=== PATIENT | male | born 1950 | race Caucasian/White ===

== ENCOUNTER → 2017-03-21 | Outpatient (REF) | payer MEDICARE ==
[2017-03-21 15:37] LABS: BASO # 0.1 K/mm3 (0.0-0.2); EOS # 0.3 K/mm3 (0.0-0.50); EOS % 3.7 % (0.0-3.0); LARGE UNSTAINED CELL # 0.2 K/mm3 (0.0-0.4); LARGE UNSTAINED CELL % 1.9 % (0.0-4.0); LYMPH # 2.5 K/mm3 (1.5-4.5); LYMPH % 27.2 % (24.0-44.0); MEAN CORPUSCULAR HEMOGLOBIN 31.3 pg (27.0-33.0); MEAN CORPUSCULAR HGB CONC 35.2 g/dl (32.0-36.5); MEAN CORPUSCULAR VOLUME 88.8 fl (80.0-96.0); MONO # 0.5 K/mm3 (0.0-0.8); MONO % 5.6 % (0.0-5.0); NEUTROPHILS # 5.2 K/mm3 (1.8-7.7); NEUTROPHILS % 60.7 % (36.0-66.0); PLATELET COUNT, AUTOMATED 260 k/mm3 (150-450); RED CELL DISTRIBUTION WIDTH 12.9 % (11.5-14.5); WHITE BLOOD COUNT 8.6 K/mm3 (4.0-10.0)
[2017-03-21 15:50] LABS: ALBUMIN 3.8 GM/DL (3.2-5.2); ALBUMIN/GLOBULIN RATIO 1.12 (1.00-1.93); ALKALINE PHOSPHATASE 92 U/L (45-117); ALT/SGPT 36 U/L (12-78); ANION GAP 8 MEQ/L (8-16); AST/SGOT 22 U/L (15-37); BILIRUBIN,TOTAL 1.2 MG/DL (0.2-1.0); BLOOD UREA NITROGEN 21 MG/DL (7-18); CALCIUM LEVEL 8.8 MG/DL (8.8-10.2); CARBON DIOXIDE LEVEL 31 MEQ/L (21-32); CHLORIDE LEVEL 101 MEQ/L (98-107); CHOLESTEROL LEVEL 187 MG/DL (<200); CREATININE FOR GFR 0.96 MG/DL (0.70-1.30); GLOMERULAR FILTRATION RATE > 60.0 (>49); GLUCOSE, FASTING 197 MG/DL (80-110); POTASSIUM SERUM 4.7 MEQ/L (3.5-5.1); SODIUM LEVEL 140 MEQ/L (136-145); TOTAL PROTEIN 7.2 GM/DL (6.4-8.2); TRIGLYCERIDES LEVEL 213 MG/DL (<150)
== END ==
LOC: M SFHCSACK 13:31
PROVIDERS: ATTEND Physician Assistant
DX: E11.628 Type 2 diabetes mellitus with other skin complications (principal); F41.8 Other specified anxiety disorders; E78.5 Hyperlipidemia, unspecified; E11.69 Type 2 diabetes mellitus with other specified complication; R53.83 Other fatigue; Z79.82 Long term (current) use of aspirin; E55.9 Vitamin D deficiency, unspecified

== ENCOUNTER → 2017-04-08 | Outpatient (REF) | payer MEDICARE | LOC: M LABDRWLA 15:26 | PROVIDERS: ATTEND Urology | DX: Z12.5 Encounter for screening for malignant neoplasm of prostate (principal) | CPT/HCPCS: 36415; G0103 ==

== ENCOUNTER → 2017-07-25 | Outpatient (REF) | payer MEDICARE ==
[2017-07-25 16:43] LABS: BASO # 0.1 K/mm3 (0.0-0.2); BASO % 0.7 % (0.0-1.0); EOS # 0.1 K/mm3 (0.0-0.50); LARGE UNSTAINED CELL # 0.2 K/mm3 (0.0-0.4); LARGE UNSTAINED CELL % 1.3 % (0.0-4.0); LYMPH % 20.2 % (24.0-44.0); MEAN CORPUSCULAR HEMOGLOBIN 30.1 pg (27.0-33.0); MEAN CORPUSCULAR HGB CONC 33.8 g/dl (32.0-36.5); MEAN CORPUSCULAR VOLUME 88.8 fl (80.0-96.0); MONO # 0.9 K/mm3 (0.0-0.8); MONO % 6.1 % (0.0-5.0); NEUTROPHILS # 9.9 K/mm3 (1.8-7.7); NEUTROPHILS % 70.8 % (36.0-66.0); PLATELET COUNT, AUTOMATED 286 k/mm3 (150-450); RED CELL DISTRIBUTION WIDTH 13.1 % (11.5-14.5)
[2017-07-25 16:50] LABS: ALBUMIN 3.8 GM/DL (3.2-5.2); ALBUMIN/GLOBULIN RATIO 1.09 (1.00-1.93); ALKALINE PHOSPHATASE 89 U/L (45-117); ALT/SGPT 32 U/L (12-78); ANION GAP 7 MEQ/L (8-16); AST/SGOT 10 U/L (15-37); BLOOD UREA NITROGEN 23 MG/DL (7-18); CALCIUM LEVEL 9.1 MG/DL (8.8-10.2); CARBON DIOXIDE LEVEL 31 MEQ/L (21-32); CHLORIDE LEVEL 102 MEQ/L (98-107); CHOLESTEROL LEVEL 119 MG/DL (<200); CREATININE FOR GFR 0.91 MG/DL (0.70-1.30); GLOMERULAR FILTRATION RATE > 60.0 (>49); GLUCOSE, FASTING 127 MG/DL (80-110); POTASSIUM SERUM 4.4 MEQ/L (3.5-5.1); SODIUM LEVEL 140 MEQ/L (136-145); TOTAL PROTEIN 7.3 GM/DL (6.4-8.2); TRIGLYCERIDES LEVEL 128 MG/DL (<150)
== END ==
LOC: M SFHCSACK 10:48
PROVIDERS: ATTEND Physician Assistant
DX: E78.5 Hyperlipidemia, unspecified (principal); E11.628 Type 2 diabetes mellitus with other skin complications; E55.9 Vitamin D deficiency, unspecified

== ENCOUNTER → 2017-07-25 | Outpatient (REF) | payer MEDICARE ==
[2017-07-25 16:48] LABS: FOLATE 10.5 NG/ML
[2017-07-25 16:52] LABS: MEAN CORPUSCULAR HEMOGLOBIN 31.1 pg (27.0-33.0); MEAN CORPUSCULAR HGB CONC 34.9 g/dl (32.0-36.5); MEAN CORPUSCULAR VOLUME 89.1 fl (80.0-96.0); WHITE BLOOD COUNT 13.3 K/mm3 (4.0-10.0)
[2017-07-25 16:53] LABS: FREE T4 0.8 NG/DL (0.76-1.46); PERCENT SATURATION 27.7 % (19.7-50.0)
== END ==
LOC: M LAB REF 14:15
PROVIDERS: ATTEND Registered Nurse
DX: E78.5 Hyperlipidemia, unspecified (principal); Z79.899 Other long term (current) drug therapy; E11.628 Type 2 diabetes mellitus with other skin complications; E55.9 Vitamin D deficiency, unspecified

== ENCOUNTER → 2017-08-03 | Outpatient (REF) | payer MEDICARE | LOC: M LAB REF 15:42 | PROVIDERS: ATTEND Registered Nurse | DX: E66.01 Morbid (severe) obesity due to excess calories (principal) | CPT/HCPCS: 36415; 84425; G0463 ==

== ENCOUNTER → 2017-11-25 | Outpatient (REF) | payer MEDICARE ==
[2017-11-25 17:51] LABS: BASO # 0.1 10^3/uL (0.0-0.2); EOS # 0.3 10^3/uL (0.0-0.50); EOS % 4.9 % (0.0-3.0); HEMATOCRIT 38.2 % (42.0-52.0); HEMOGLOBIN 12.4 g/dl (14.0-18.0); IMMATURE GRANULOCYTE % 0.3 % (0-0); LYMPH # 1.5 10^3/uL (1.5-4.5); LYMPH % 25.7 % (24.0-44.0); MEAN CORPUSCULAR HEMOGLOBIN 28.1 pg (27.0-33.0); MEAN CORPUSCULAR HGB CONC 32.5 g/dl (32.0-36.5); MEAN CORPUSCULAR VOLUME 86.6 fl (80.0-96.0); MONO # 0.6 10^3/uL (0.0-0.8); MONO % 9.6 % (0.0-5.0); NEUTROPHILS # 3.5 10^3/uL (1.8-7.7); NEUTROPHILS % 58.5 % (36.0-66.0); PLATELET COUNT, AUTOMATED 263 10^3/uL (150-450); RED BLOOD COUNT 4.41 10^6/uL (4.30-6.10); RED CELL DISTRIBUTION WIDTH 12.1 % (11.5-14.5)
[2017-11-25 18:13] LABS: ALBUMIN 3.6 GM/DL (3.2-5.2); ALBUMIN/GLOBULIN RATIO 1.16 (1.00-1.93); ALKALINE PHOSPHATASE 79 U/L (45-117); ALT/SGPT 28 U/L (12-78); ANION GAP 5 MEQ/L (8-16); AST/SGOT 19 U/L (7-37); BILIRUBIN,TOTAL 1.3 MG/DL (0.2-1.0); BLOOD UREA NITROGEN 19 MG/DL (7-18); CALCIUM LEVEL 8.7 MG/DL (8.8-10.2); CARBON DIOXIDE LEVEL 31 MEQ/L (21-32); CHLORIDE LEVEL 105 MEQ/L (98-107); GLOMERULAR FILTRATION RATE > 60.0 (>49); GLUCOSE, FASTING 257 MG/DL (80-110); POTASSIUM SERUM 4.2 MEQ/L (3.5-5.1); SODIUM LEVEL 141 MEQ/L (136-145); TOTAL PROTEIN 6.7 GM/DL (6.4-8.2)
[2017-11-25 18:32] LABS: ESTIMATED AVERAGE GLUCOSE 189 MG/DL (60-110); HEMOGLOBIN A1c 8.2 %
[2017-11-25 18:38] LABS: TOTAL 25(OH) VITAMIN D 49.8 NG/ML (30.0-100.0)
== END ==
LOC: M SFHCSACK 10:48
DX: E78.5 Hyperlipidemia, unspecified (principal); E11.628 Type 2 diabetes mellitus with other skin complications; E55.9 Vitamin D deficiency, unspecified
CPT/HCPCS: 80053

== ENCOUNTER → 2017-12-07 | Outpatient (REF) | payer MEDICARE | LOC: M SFHCSACK 16:06 | DX: J02.9 Acute pharyngitis, unspecified (principal) ==

== ENCOUNTER → 2018-03-29 | Outpatient (CLI) | payer MEDICARE | LOC: M SLEEP HO 13:28 | DX: G47.33 Obstructive sleep apnea (adult) (pediatric) (principal) | CPT/HCPCS: G0399 ==

== ENCOUNTER → 2018-07-05 | Outpatient (REF) | payer MEDICARE ==
[2018-07-05 14:26] LABS: BASO # 0.1 10^3/uL (0.0-0.2); BASO % 1.1 % (0.0-1.0); EOS # 0.3 10^3/uL (0.0-0.50); EOS % 3.4 % (0.0-3.0); HEMATOCRIT 42.6 % (42.0-52.0); HEMOGLOBIN 14.5 g/dl (13.5-17.5); IMMATURE GRANULOCYTE % 0.4 % (0-3.0); LYMPH # 2.1 10^3/uL (1.5-4.5); LYMPH % 28.5 % (24.0-44.0); MEAN CORPUSCULAR HEMOGLOBIN 28.4 pg (27.0-33.0); MEAN CORPUSCULAR VOLUME 83.4 fl (80.0-96.0); MONO # 0.6 10^3/uL (0.0-0.8); MONO % 7.8 % (0.0-5.0); NEUTROPHILS # 4.3 10^3/uL (1.8-7.7); NEUTROPHILS % 58.8 % (36.0-66.0); PLATELET COUNT, AUTOMATED 269 10^3/uL (150-450); RED BLOOD COUNT 5.11 10^6/uL (4.30-6.10); RED CELL DISTRIBUTION WIDTH 13.1 % (11.5-14.5); WHITE BLOOD COUNT 7.3 10^3/uL (4.0-10.0)
[2018-07-05 14:55] LABS: TOTAL 25(OH) VITAMIN D 52.9 NG/ML (30.0-100.0)
[2018-07-05 15:01] LABS: ALBUMIN 3.8 GM/DL (3.2-5.2); ALBUMIN/GLOBULIN RATIO 1.09 (1.00-1.93); ALKALINE PHOSPHATASE 93 U/L (45-117); ALT/SGPT 19 U/L (12-78); ANION GAP 7 MEQ/L (8-16); AST/SGOT 15 U/L (7-37); BILIRUBIN,TOTAL 1.4 MG/DL (0.2-1.0); BLOOD UREA NITROGEN 25 MG/DL (7-18); CALCIUM LEVEL 9.2 MG/DL (8.8-10.2); CARBON DIOXIDE LEVEL 32 MEQ/L (21-32); CHLORIDE LEVEL 102 MEQ/L (98-107); CHOLESTEROL LEVEL 181 MG/DL (<200); CHOLESTEROL RISK RATIO 3.549 (<5); CREATININE FOR GFR 1.01 MG/DL (0.70-1.30); GLOMERULAR FILTRATION RATE > 60.0 (>49); GLUCOSE, FASTING 188 MG/DL (70-100); HDL CHOLESTEROL 51 MG/DL (>40); LDL CHOLESTEROL 108.4 MG/DL (<100); NON-HDL-C 130 MG/DL; SODIUM LEVEL 141 MEQ/L (136-145); TOTAL PROTEIN 7.3 GM/DL (6.4-8.2); TRIGLYCERIDES LEVEL 108 MG/DL (<150)
[2018-07-05 15:05] LABS: POTASSIUM SERUM 5.5 MEQ/L (3.5-5.1)
[2018-07-05 15:39] LABS: ESTIMATED AVERAGE GLUCOSE 192 MG/DL (60-110); HEMOGLOBIN A1c 8.3 %
== END ==
LOC: M SFHCSACK 09:21
DX: I10 Essential (primary) hypertension (principal); E11.628 Type 2 diabetes mellitus with other skin complications; F41.8 Other specified anxiety disorders; E78.5 Hyperlipidemia, unspecified; E55.9 Vitamin D deficiency, unspecified
CPT/HCPCS: 84443

== ENCOUNTER → 2018-07-12 | Outpatient (CLI) | payer MEDICARE | LOC: M SFHCSACK 09:33 | DX: E66.01 Morbid (severe) obesity due to excess calories (principal); Z53.8 Procedure and treatment not carried out for other reasons | CPT/HCPCS: 36415 ==

== ENCOUNTER → 2018-07-14 | Outpatient (REF) | payer MEDICARE ==
[2018-07-14 16:26] LABS: FERRITIN 24 NG/ML (26-388); IRON (FE) 118 UG/DL (65-175); PERCENT SATURATION 33.8 % (19.7-50.0); TOTAL IRON BINDING CAPACITY 349 UG/DL (250-450)
[2018-07-14 16:29] LABS: TOTAL 25(OH) VITAMIN D 49.1 NG/ML (30.0-100.0)
[2018-07-14 16:30] LABS: FOLATE 19.1 NG/ML (>5.4); VITAMIN B12 LEVEL 476 PG/ML (247-911)
[2018-07-20 00:06] LABS: VITAMIN B1 LEVEL WHOLE BLOOD 151.1 nmol/L (66.5-200.0)
== END ==
LOC: M SFHCSACK 15:16
DX: E11.9 Type 2 diabetes mellitus without complications (principal); F41.8 Other specified anxiety disorders; E78.5 Hyperlipidemia, unspecified; E55.9 Vitamin D deficiency, unspecified; I10 Essential (primary) hypertension; G47.33 Obstructive sleep apnea (adult) (pediatric)
CPT/HCPCS: 82746

== ENCOUNTER → 2018-10-20 | Outpatient (REF) | payer MEDICARE ==
[2018-10-20 13:45] LABS: BASO # 0.1 10^3/uL (0.0-0.2); BASO % 1.3 % (0.0-1.0); EOS # 0.2 10^3/uL (0.0-0.50); EOS % 2.4 % (0.0-3.0); HEMATOCRIT 40.4 % (42.0-52.0); IMMATURE GRANULOCYTE % 0.6 % (0-3.0); LYMPH # 2.5 10^3/uL (1.5-4.5); MEAN CORPUSCULAR HEMOGLOBIN 26.2 pg (27.0-33.0); MEAN CORPUSCULAR HGB CONC 32.2 g/dl (32.0-36.5); MEAN CORPUSCULAR VOLUME 81.3 fl (80.0-96.0); MONO # 0.5 10^3/uL (0.0-0.8); MONO % 6.9 % (0.0-5.0); NEUTROPHILS # 3.7 10^3/uL (1.8-7.7); NEUTROPHILS % 52.8 % (36.0-66.0); PLATELET COUNT, AUTOMATED 265 10^3/uL (150-450); RED BLOOD COUNT 4.97 10^6/uL (4.30-6.10); RED CELL DISTRIBUTION WIDTH 12.6 % (11.5-14.5)
[2018-10-20 14:16] LABS: ALBUMIN 3.9 GM/DL (3.2-5.2); ALBUMIN/GLOBULIN RATIO 1.15 (1.00-1.93); ALKALINE PHOSPHATASE 94 U/L (45-117); ALT/SGPT 17 U/L (12-78); ANION GAP 7 MEQ/L (8-16); AST/SGOT 12 U/L (7-37); BLOOD UREA NITROGEN 22 MG/DL (7-18); CALCIUM LEVEL 9.2 MG/DL (8.8-10.2); CARBON DIOXIDE LEVEL 31 MEQ/L (21-32); CHLORIDE LEVEL 102 MEQ/L (98-107); CHOLESTEROL LEVEL 173 MG/DL (<200); CREATININE FOR GFR 1.08 MG/DL (0.70-1.30); GLOMERULAR FILTRATION RATE > 60.0 (>49); GLUCOSE, FASTING 226 MG/DL (70-100); HDL CHOLESTEROL 49 MG/DL (>40); LDL CHOLESTEROL 106 MG/DL (<100); NON-HDL-C 124 MG/DL; POTASSIUM SERUM 4.1 MEQ/L (3.5-5.1); SODIUM LEVEL 140 MEQ/L (136-145); TOTAL PROTEIN 7.3 GM/DL (6.4-8.2); TRIGLYCERIDES LEVEL 89 MG/DL (<150)
[2018-10-20 14:19] LABS: ESTIMATED AVERAGE GLUCOSE 232 MG/DL (60-110); HEMOGLOBIN A1c 9.7 %
[2018-10-20 14:23] LABS: TOTAL 25(OH) VITAMIN D 54.2 NG/ML (30.0-100.0)
[2018-10-20 14:24] LABS: MALB URINE SIEMENS 15.3 MG/L; MAU/CREAT RATIO 8.1 MCG/MG (0.0-30.0)
== END ==
LOC: M SFHCSACK 08:17
DX: I10 Essential (primary) hypertension (principal); E78.5 Hyperlipidemia, unspecified; E11.69 Type 2 diabetes mellitus with other specified complication; E55.9 Vitamin D deficiency, unspecified
CPT/HCPCS: 80053

== ENCOUNTER → 2019-03-26 | Outpatient (REF) | payer MEDICARE ==
[2019-03-26 14:11] LABS: BASO # 0.1 10^3/uL (0.0-0.2); BASO % 1.2 % (0.0-1.0); EOS # 0.3 10^3/uL (0.0-0.50); EOS % 3.3 % (0.0-3.0); HEMATOCRIT 40.8 % (42.0-52.0); HEMOGLOBIN 13.4 g/dl (13.5-17.5); LYMPH # 2.5 10^3/uL (1.5-4.5); LYMPH % 32.3 % (24.0-44.0); MEAN CORPUSCULAR HEMOGLOBIN 27.1 pg (27.0-33.0); MEAN CORPUSCULAR HGB CONC 32.8 g/dl (32.0-36.5); MEAN CORPUSCULAR VOLUME 82.4 fl (80.0-96.0); MONO # 0.8 10^3/uL (0.0-0.8); MONO % 9.6 % (0.0-5.0); NEUTROPHILS # 4.1 10^3/uL (1.8-7.7); NEUTROPHILS % 52.7 % (36.0-66.0); PLATELET COUNT, AUTOMATED 216 10^3/uL (150-450); RED BLOOD COUNT 4.95 10^6/uL (4.30-6.10); WHITE BLOOD COUNT 7.8 10^3/uL (4.0-10.0)
[2019-03-26 14:23] LABS: ALBUMIN 3.7 GM/DL (3.2-5.2); ALT/SGPT 24 U/L (12-78); BILIRUBIN,TOTAL 1.1 MG/DL (0.2-1.0); BLOOD UREA NITROGEN 26 MG/DL (7-18); CALCIUM LEVEL 8.8 MG/DL (8.8-10.2); CARBON DIOXIDE LEVEL 32 MEQ/L (21-32); CHLORIDE LEVEL 103 MEQ/L (98-107); CHOLESTEROL LEVEL 163 MG/DL (<200); CHOLESTEROL RISK RATIO 3.395 (<5); CREATININE FOR GFR 0.98 MG/DL (0.70-1.30); GLOMERULAR FILTRATION RATE > 60.0 (>49); GLUCOSE, FASTING 228 MG/DL (70-100); HDL CHOLESTEROL 48 MG/DL (>40); LDL CHOLESTEROL 91 MG/DL (<100); NON-HDL-C 115 MG/DL; POTASSIUM SERUM 4.5 MEQ/L (3.5-5.1); SODIUM LEVEL 139 MEQ/L (136-145); TOTAL PROTEIN 6.8 GM/DL (6.4-8.2); TRIGLYCERIDES LEVEL 120 MG/DL (<150)
[2019-03-26 14:26] LABS: TOTAL 25(OH) VITAMIN D 41.8 NG/ML (30.0-100.0)
== END ==
LOC: M SFHCSACK 08:14
PROVIDERS: ATTEND Physician Assistant
DX: I10 Essential (primary) hypertension (principal); E11.69 Type 2 diabetes mellitus with other specified complication; E78.5 Hyperlipidemia, unspecified; E55.9 Vitamin D deficiency, unspecified

== ENCOUNTER → 2019-04-23 | Outpatient (REF) | payer MEDICARE | LOC: M LAB REF 14:39 | PROVIDERS: ATTEND Urology | DX: Z12.5 Encounter for screening for malignant neoplasm of prostate (principal) ==

== ENCOUNTER 2019-06-07 10:27 | Emergency (ER) | payer MEDICARE ==
[~2019-06-07] VITALS: Ht 188 cm; Wt 101.0 kg
[2019-06-07] MEDS ORDERED: TIZA4TAB4 (10:35)
[2019-06-07] MEDS ORDERED: VENL150C43 (10:35)
[2019-06-07] MEDS ORDERED: METF500T4 (10:35)
[2019-06-07] MEDS ORDERED: ECOT81TA5 PO (10:35)
[2019-06-07] MEDS ORDERED: HYDR1CAP25 (10:35)
--- NOTE | 2019-06-07 11:45 | REP ---
LUMBOSACRAL SPINE: Five views of the lumbosacral spine are performed. There is no compression fracture or malalignment with normal lumbar lordosis. There is no spondylolysis or spondylolisthesis. There is mild diffuse spurring. There is moderate disc space narrowing with subchondral sclerosis and vacuum at L4-L5 and L5-S1 with sclerosis and spurring at the posterior facet joints at those levels. The posterior elements are intact. There is narrowing and sclerosis at the sacroiliac joints. IMPRESSION: Degenerative changes without fracture or dislocation. Electronically Signed by Fredis Keller MD 06/07/2019 12:46 P
--- NOTE | 2019-06-07 11:46 | REP ---
LEFT KNEE SERIES: Five views of the left knee are performed. No fracture or dislocation is seen. There is a metallic knee prosthesis. No definite abnormal lucencies are seen adjacent to the femoral or tibial components of the prosthesis. There is mild superior patellar spurring. Vascular calcifications are seen posteriorly. IMPRESSION: No acute fracture or dislocation. Electronically Signed by Fredis Keller MD 06/07/2019 12:46 P
[2019-06-07] MEDS ORDERED: KETOROLAC 60 MG/2 ML VIAL (J1885) IM ONE (12:00)
[2019-06-07] MEDS ORDERED: VOLT1GEL15 TOP (12:31)
[2019-06-07 12:37] VITALS: BP 141/85
== END 2019-06-07 12:41 | disposition home or self-care (01) ==
LOC: M ED 10:27
DX: M54.32 Sciatica, left side (principal); G89.29 Other chronic pain; M79.662 Pain in left lower leg; E11.9 Type 2 diabetes mellitus without complications; Z98.84 Bariatric surgery status; Z79.82 Long term (current) use of aspirin; Z79.84 Long term (current) use of oral hypoglycemic drugs; Z79.899 Other long term (current) drug therapy; Z91.013 Allergy to seafood
CPT/HCPCS: 72110; 73564; 96372; 99283; J1885

== ENCOUNTER → 2019-10-03 | Outpatient (REF) | payer MEDICARE ==
[~2019-10-03] MED LIST: ECOT81TA5 PO; HYDR1CAP25; METF-791; TIZA4TAB4; VENL150C43; VOLT1GEL15 TOP
[2019-10-03 14:11] LABS: BASO # 0.1 10^3/uL (0.0-0.2); BASO % 0.7 % (0.0-1.0); EOS # 0.3 10^3/uL (0.0-0.5); EOS % 2.9 % (0.0-3.0); HEMATOCRIT 44.4 % (42.0-52.0); HEMOGLOBIN 14.5 g/dl (13.5-17.5); LYMPH # 2.4 10^3/uL (1.5-5.0); MEAN CORPUSCULAR HEMOGLOBIN 28.3 pg (27.0-33.0); MEAN CORPUSCULAR HGB CONC 32.7 g/dl (32.0-36.5); MEAN CORPUSCULAR VOLUME 86.5 fl (80.0-96.0); MONO # 0.6 10^3/uL (0.0-0.8); NEUTROPHILS # 5.2 10^3/uL (1.5-8.5); NEUTROPHILS % 60.6 % (36.0-66.0); PLATELET COUNT, AUTOMATED 244 10^3/uL (150-450); RED BLOOD COUNT 5.13 10^6/uL (4.30-6.10); WHITE BLOOD COUNT 8.6 10^3/uL (4.0-10.0)
[2019-10-03 14:34] LABS: HEMOGLOBIN A1c 8.9 %
[2019-10-03 14:44] LABS: ALBUMIN 3.8 GM/DL (3.2-5.2); ALT/SGPT 29 U/L (12-78); BILIRUBIN,TOTAL 1.5 MG/DL (0.2-1.0); BLOOD UREA NITROGEN 21 MG/DL (7-18); CALCIUM LEVEL 9.5 MG/DL (8.8-10.2); CARBON DIOXIDE LEVEL 30 MEQ/L (21-32); CHLORIDE LEVEL 104 MEQ/L (98-107); CHOLESTEROL LEVEL 196 MG/DL (<200); FERRITIN 25 NG/ML (26-388); GLOMERULAR FILTRATION RATE > 60.0 (>42); GLUCOSE, FASTING 218 MG/DL (70-100); HDL CHOLESTEROL 49 MG/DL (>40); IRON (FE) 148 UG/DL (65-175); LDL CHOLESTEROL 116 MG/DL (<100); NON-HDL-C 147 MG/DL; PERCENT SATURATION 41.7 % (19.7-50.0); POTASSIUM SERUM 4.8 MEQ/L (3.5-5.1); SODIUM LEVEL 141 MEQ/L (136-145); TOTAL IRON BINDING CAPACITY 355 UG/DL (250-450); TOTAL PROTEIN 7.4 GM/DL (6.4-8.2); TRIGLYCERIDES LEVEL 157 MG/DL (<150)
[2019-10-03 14:51] LABS: TOTAL 25(OH) VITAMIN D 48.5 NG/ML (30.0-100.0)
[2019-10-03 14:52] LABS: MALB URINE SIEMENS 9.7 MG/L
== END ==
LOC: M SFHCSACK 09:16
PROVIDERS: ATTEND Physician Assistant
DX: D64.9 Anemia, unspecified (principal); E11.628 Type 2 diabetes mellitus with other skin complications; E78.5 Hyperlipidemia, unspecified; N40.0 Benign prostatic hyperplasia without lower urinary tract symptoms; E55.9 Vitamin D deficiency, unspecified
CPT/HCPCS: 80053; 80061; 82043; 82306; 82728; 83036; 83550; 85025; G0103

== ENCOUNTER 2020-04-13 22:47 | Emergency (ER) | payer MEDICARE ==
[~2020-04-13 22:47] MED LIST changes: -METF-791; +METF-838
[2020-04-13] MEDS ORDERED: NS 1,000 ML IV ONE (23:00)
[2020-04-13 23:24] LABS: HEMATOCRIT 35.1 % (42.0-52.0); HEMOGLOBIN 12.1 g/dl (13.5-17.5); MEAN CORPUSCULAR HEMOGLOBIN 29.4 pg (27.0-33.0); MEAN CORPUSCULAR HGB CONC 34.5 g/dl (32.0-36.5); MEAN CORPUSCULAR VOLUME 85.4 fl (80.0-96.0); PLATELET COUNT, AUTOMATED 192 10^3/uL (150-450); RED BLOOD COUNT 4.11 10^6/uL (4.30-6.10); WHITE BLOOD COUNT 15.1 10^3/uL (4.0-10.0)
[2020-04-13 23:55] LABS: ALBUMIN 3.3 GM/DL (3.2-5.2); ALT/SGPT 28 U/L (12-78); BILIRUBIN,DIRECT 0.2 MG/DL (0.0-0.2); BILIRUBIN,TOTAL 1.1 MG/DL (0.2-1.0); BLOOD UREA NITROGEN 18 MG/DL (7-18); CALCIUM LEVEL 8.5 MG/DL (8.8-10.2); CARBON DIOXIDE LEVEL 28 MEQ/L (21-32); CHLORIDE LEVEL 106 MEQ/L (98-107); CREATININE FOR GFR 1.17 MG/DL (0.70-1.30); GLOMERULAR FILTRATION RATE > 60.0 (>42); GLUCOSE, FASTING 287 MG/DL (70-100); POTASSIUM SERUM 3.6 MEQ/L (3.5-5.1); SODIUM LEVEL 140 MEQ/L (136-145); TOTAL PROTEIN 6.4 GM/DL (6.4-8.2)
[2020-04-14 00:30] VITALS: BP 145/70
== END 2020-04-14 01:09 | disposition home or self-care (01) ==
LOC: M ED 22:47
DX: F18.10 Inhalant abuse, uncomplicated (principal); Z98.84 Bariatric surgery status; Z79.899 Other long term (current) drug therapy; Z79.84 Long term (current) use of oral hypoglycemic drugs; Z79.82 Long term (current) use of aspirin; Z91.018 Allergy to other foods

== ENCOUNTER → 2020-04-21 | Outpatient (CLI) | payer BC | LOC: M PLALAB 15:24 | PROVIDERS: ATTEND Urology | DX: Z12.5 Encounter for screening for malignant neoplasm of prostate (principal) ==

== ENCOUNTER → 2020-04-21 | Outpatient (REF) | payer BC ==
[2020-04-21 17:19] LABS: BLOOD UREA NITROGEN 16 MG/DL (7-18); CALCIUM LEVEL 9.2 MG/DL (8.8-10.2); CARBON DIOXIDE LEVEL 31 MEQ/L (21-32); CHLORIDE LEVEL 105 MEQ/L (98-107); CHOLESTEROL LEVEL 141 MG/DL (<200); CHOLESTEROL RISK RATIO 2.937 (<5); CREATININE FOR GFR 1.01 MG/DL (0.70-1.30); GLOMERULAR FILTRATION RATE > 60.0 (>42); GLUCOSE, FASTING 148 MG/DL (70-100); HDL CHOLESTEROL 48 MG/DL (>40); LDL CHOLESTEROL 61 MG/DL (<100); NON-HDL-C 93 MG/DL; SODIUM LEVEL 141 MEQ/L (136-145); TRIGLYCERIDES LEVEL 158 MG/DL (<150)
[2020-04-21 17:45] LABS: BASO # 0.1 10^3/uL (0.0-0.2); BASO % 0.7 % (0.0-1.0); EOS # 0.5 10^3/uL (0.0-0.5); EOS % 5.7 % (0.0-3.0); HEMATOCRIT 40.8 % (42.0-52.0); HEMOGLOBIN 13.6 g/dl (13.5-17.5); LYMPH # 2.1 10^3/uL (1.5-5.0); LYMPH % 23.4 % (24.0-44.0); MEAN CORPUSCULAR HEMOGLOBIN 29.2 pg (27.0-33.0); MEAN CORPUSCULAR HGB CONC 33.3 g/dl (32.0-36.5); MEAN CORPUSCULAR VOLUME 87.7 fl (80.0-96.0); MONO # 0.6 10^3/uL (0.0-0.8); MONO % 6.7 % (0.0-5.0); NEUTROPHILS # 5.6 10^3/uL (1.5-8.5); NEUTROPHILS % 62.6 % (36.0-66.0); PLATELET COUNT, AUTOMATED 229 10^3/uL (150-450); RED BLOOD COUNT 4.65 10^6/uL (4.30-6.10); WHITE BLOOD COUNT 8.9 10^3/uL (4.0-10.0)
[2020-04-21 19:25] LABS: HEMOGLOBIN A1c 8.4 %
== END ==
LOC: M SFHCLERA 15:23
PROVIDERS: ATTEND Family Medicine
DX: I10 Essential (primary) hypertension (principal); E11.69 Type 2 diabetes mellitus with other specified complication; E78.5 Hyperlipidemia, unspecified

== ENCOUNTER 2020-06-28 12:05 | Inpatient (IN) | payer BC ==
[~2020-06-28 12:05] MED LIST changes: +VERAPAMIL 180MG EXTENDED RELEASE TABLET ONE
[2020-06-28] MEDS ORDERED: ISOVUE-370 76% 100ML VIAL As Ordered ONE (13:33)
[2020-06-28] MEDS ORDERED: ROSUVASTATIN 10 MG TAB (CRESTOR) ONE (18:40)
[2020-06-28] MEDS ORDERED: SITagliptin 50 MG TAB (JANUVIA) ONE (18:40)
[2020-06-28] MEDS ORDERED: VENLAFAXINE **XR** 75MG CAPSULE ONE (18:40)
[2020-06-28] MEDS ORDERED: MULTIVITAMINS/MINERALS THERAP 1 TAB ONE (18:40)
[2020-06-28] MEDS ORDERED: MULTIVITAMINS/MINERALS THERAP 1 TAB As Ordered ONE (18:40)
[2020-06-28] MEDS ORDERED: SITagliptin 50 MG TAB (JANUVIA) As Ordered ONE (18:41)
[2020-06-28] MEDS ORDERED: VENLAFAXINE **XR** 75MG CAPSULE As Ordered ONE (18:41)
[2020-06-28] MEDS ORDERED: ROSUVASTATIN 10 MG TAB (CRESTOR) As Ordered ONE (18:53)
[2020-06-28] MEDS ORDERED: APIXABAN 5 MG TAB (ELIQUIS) As Ordered ONE (21:06)
[2020-06-28] MEDS ORDERED: hydrOXYzine 25 MG TAB As Ordered ONE (21:06)
[2020-06-28] MEDS ORDERED: tiZANidine 4 MG TAB As Ordered ONE (21:06)
[2020-06-28] MEDS ORDERED: tiZANidine 4 MG TAB ONE (21:06)
[2020-06-28] MEDS ORDERED: hydrOXYzine 25 MG TAB ONE (21:06)
[2020-06-28] MEDS ORDERED: APIXABAN 5 MG TAB (ELIQUIS) ONE (21:06)
[2020-06-29] MEDS ORDERED: TEMAZEPAM 15 MG CAP As Ordered ONE (01:27)
[2020-06-29] MEDS ORDERED: TEMAZEPAM 15 MG CAP ONE (01:27)
[2020-06-29] MEDS ORDERED: MULTIVITAMINS/MINERALS THERAP 1 TAB ONE (08:35)
[2020-06-29] MEDS ORDERED: SITagliptin 50 MG TAB (JANUVIA) ONE (08:35)
[2020-06-29] MEDS ORDERED: APIXABAN 5 MG TAB (ELIQUIS) As Ordered ONE (08:35)
[2020-06-29] MEDS ORDERED: APIXABAN 5 MG TAB (ELIQUIS) ONE (08:35)
[2020-06-29] MEDS ORDERED: ROSUVASTATIN 10 MG TAB (CRESTOR) ONE (08:35)
[2020-06-29] MEDS ORDERED: MULTIVITAMINS/MINERALS THERAP 1 TAB As Ordered ONE (08:35)
[2020-06-29] MEDS ORDERED: VENLAFAXINE **XR** 75MG CAPSULE ONE (08:35)
[2020-06-29] MEDS ORDERED: SITagliptin 50 MG TAB (JANUVIA) As Ordered ONE (08:35)
[2020-06-29] MEDS ORDERED: VENLAFAXINE **XR** 75MG CAPSULE As Ordered ONE (08:36)
[2020-06-29] MEDS ORDERED: ROSUVASTATIN 10 MG TAB (CRESTOR) As Ordered ONE (08:36)
[2020-06-29] MEDS ORDERED: VERAPAMIL 180MG EXTENDED RELEASE TABLET ONE (09:00)
--- NOTE | 2020-07-25 13:36 | ECGEPIP ---
[facility] - ED Test Date: 2020-06-28 Pat Name: IZABELLA LOJA Department: Room: [place] [address] Gender: Male Experiential Therapist: KAREN : 1950 Requested By: Lisa Kilpatrick Order Number: [id number] Reading MD: Lisa Kilpatrick Measurements Intervals [place] Rate: 137 P: ND: 0 QRS: 45 QRSD: 87 T: 11 QT: 289 QTc: 437 Interpretive Statements ATRIAL FIBRILLATION WITH RAPID VENTRICULAR RESPONSE ABNORMAL RHYTHM ECG NONSPECIFICSTT CHANGES NO PRIOR DUE TO DOWNTIME SEE SCANNED DOWNTIME REPORT
--- NOTE | 2020-07-25 13:39 | ECGEPIP ---
[facility] - ED Test Date: 2020-06-28 Pat Name: IZABELLA LOJA Department: Room: [place] [address] Gender: Male Career Development Engineer: STIVEN : 1950 Requested By: Lisa Kilpatrick Order Number: [id number] Reading MD: Lisa Kilpatrick Measurements Intervals [place] Rate: 70 P: 24 TX: 145 QRS: 30 QRSD: 92 T: 39 QT: 383 QTc: 415 Interpretive Statements SINUS RHYTHM NONSPECIFIC T-WAVE ABNORMALITY BORDERLINE ECG NO PRIOR DUE TO DOWNTIME SEE SCANNED DOWNTIME REPORT
[2020-08-11 12:15] LABS: INR 1.07; PROTHROMBIN TIME 14.1 SECONDS (12.5-14.3)
[2020-08-11 14:05] LABS: BASO # 0.1 10^3/uL (0.0-0.2); BASO % 0.7 % (0.0-1.0); EOS # 0.1 10^3/uL (0.0-0.5); EOS % 1.3 % (0.0-3.0); HEMATOCRIT 46.8 % (42.0-52.0); HEMOGLOBIN 16.1 g/dl (13.5-17.5); LYMPH % 21.5 % (24.0-44.0); MEAN CORPUSCULAR HEMOGLOBIN 29.3 pg (27.0-33.0); MEAN CORPUSCULAR HGB CONC 34.4 g/dl (32.0-36.5); MEAN CORPUSCULAR VOLUME 85.1 fl (80.0-96.0); MONO # 0.7 10^3/uL (0.0-0.8); MONO % 7.9 % (0.0-5.0); NEUTROPHILS # 6.2 10^3/uL (1.5-8.5); NEUTROPHILS % 68.3 % (36.0-66.0); PLATELET COUNT, AUTOMATED 278 10^3/uL (150-450); WHITE BLOOD COUNT 9.1 10^3/uL (4.0-10.0)
[2020-09-08 15:25] LABS: HEMATOCRIT 39.2 % (42.0-52.0); HEMOGLOBIN 13.5 g/dl (13.5-17.5); MEAN CORPUSCULAR HEMOGLOBIN 29.9 pg (27.0-33.0); MEAN CORPUSCULAR HGB CONC 34.4 g/dl (32.0-36.5); MEAN CORPUSCULAR VOLUME 86.7 fl (80.0-96.0); PLATELET COUNT, AUTOMATED 215 10^3/uL (150-450); RED BLOOD COUNT 4.52 10^6/uL (4.30-6.10); WHITE BLOOD COUNT 8.9 10^3/uL (4.0-10.0)
[2020-09-14 08:09] LABS: BLOOD UREA NITROGEN 17 MG/DL (7-18); CALCIUM LEVEL 8.5 MG/DL (8.8-10.2); CARBON DIOXIDE LEVEL 31 MEQ/L (21-32); CHLORIDE LEVEL 106 MEQ/L (98-107); CREATININE FOR GFR 1.02 MG/DL (0.70-1.30); GLOMERULAR FILTRATION RATE > 60.0 (>42); GLUCOSE, FASTING 124 MG/DL (70-100); MAGNESIUM LEVEL 1.8 MG/DL (1.8-2.4); PHOSPHORUS LEVEL 3.6 MG/DL (2.5-4.9); POTASSIUM SERUM 4.1 MEQ/L (3.5-5.1); SODIUM LEVEL 141 MEQ/L (136-145)
[2020-09-21 11:12] LABS: CK-MB VALUE MASS 2.4 NG/ML (<3.6); PERCENT SATURATION 37.2 % (19.7-50.0)
[2020-09-21 11:49] LABS: ALBUMIN 3.9 GM/DL (3.2-5.2); ALT/SGPT 26 U/L (12-78); BILIRUBIN,DIRECT 0.4 MG/DL (0.0-0.2); BILIRUBIN,TOTAL 1.7 MG/DL (0.2-1.0); FREE T4 1.01 NG/DL (0.76-1.46); MAGNESIUM LEVEL 1.9 MG/DL (1.8-2.4); NT-PRO BNP 414 PG/ML (<125); TOTAL PROTEIN 7.4 GM/DL (6.4-8.2); TROPONIN I < 0.02 NG/ML (< 0.10)
== END 2020-06-29 10:30 | disposition home or self-care (01) | DRG 201 ==
LOC: M ED 12:05 → M PCU 16:00
PROVIDERS: ADMIT Internal Medicine; ATTEND Internal Medicine
DX: I48.91 Unspecified atrial fibrillation (principal); G47.33 Obstructive sleep apnea (adult) (pediatric); E11.9 Type 2 diabetes mellitus without complications; I10 Essential (primary) hypertension; Z96.652 Presence of left artificial knee joint; Z79.899 Other long term (current) drug therapy; Z91.013 Allergy to seafood; Z79.01 Long term (current) use of anticoagulants

== ENCOUNTER → 2021-06-17 | Outpatient (CLI) | payer BC ==
[~2021-06-17] MED LIST changes: +ELIQ5TAB PO; +GABA-282 PO; +GABA-283 PO; +GLIM1TAB4 PO; +JANU100T PO; +ROSU10TA6 PO; +VERA180C3 PO; -VERAPAMIL 180MG EXTENDED RELEASE TABLET ONE
== END ==
LOC: M LABSMTC 11:08
PROVIDERS: ATTEND Anesthesiology
DX: Z01.818 Encounter for other preprocedural examination (principal); Z11.52 Encounter for screening for COVID-19

== ENCOUNTER 2021-06-18 12:35 | Day surgery (SDC) | payer BC ==
[~2021-06-18] VITALS: Ht 190.5 cm; Wt 93.0 kg
[~2021-06-18 12:35] MED LIST changes: +LR 1,000 ML IV ONE
[2021-06-18] MEDS ORDERED: CETACAINE SPRAY 5GM As Ordered ONE (14:10)
[2021-06-18] MEDS ORDERED: LIDOCAINE VISCOUS 2% SOLN 15ML UDC As Ordered ONE (14:10)
[2021-06-18] MEDS ORDERED: MIDAZOLAM INJ 2MG/2ML VIAL (J2250 PER 1MG) As Ordered ONE (14:21)
[2021-06-18] MEDS ORDERED: propofoL 200 MG/20 ML VIAL As Ordered ONE (14:21)
[2021-06-18] MEDS ORDERED: ONDANSETRON 4MG/2ML VIAL As Ordered ONE (14:21)
[2021-06-18] MEDS ORDERED: fentaNYL 100 MCG/2 ML INJECTION (J3010) As Ordered ONE (14:21)
[2021-06-18] MEDS ORDERED: LIDOCAINE 2% 100MG/5ML SDV (FOR ANES.) As Ordered ONE (14:21)
[2021-06-18 15:55] VITALS: BP 133/80
--- NOTE | 2021-06-19 08:23 | T-ECHO ---
TRANSESOPHAGEAL ECHO DATE: 06/18/2021 REFERRING INDIVIDUAL: Angy Martinez INDICATION: A 45 day post Watchman transesophageal echocardiogram (ALYSHA). PREPROCEDURE DIAGNOSIS: A 45 day Watchman transesophageal echocardiogram (ALYSHA). POSTPROCEDURE DIAGNOSIS: A 45 day post Watchman transesophageal echocardiogram (ALYSHA). No thrombus on the Watchman device. FINDINGS: No thrombus on the Watchman device. Watchman device well seated in the left atrial appendage without gaps. PROCEDURE DESCRIPTION: Patient received monitored anesthetic care administered by the Certified Registered Nurse Hand Developer ([employer]) (propofol). Patient received viscous Lidocaine to gargle prior to the start of the procedure. Esophageal intubation was accomplished without difficulty using a Campos 3-dimensional transesophageal echocardiogram probe. The rhythm was sinus. Left ventricle appeared normal in size and systolic function and without regional wall motion abnormalities. Left ventricular ejection fraction (LVEF) was 60% by visual estimation. Right ventricle appeared normal in size and systolic function. The atrial septum was intact anatomically and by color flow Doppler. No residual post-septal puncture or atrial septum defect seen. The Watchman device was well seated and completely occluded the nodes of the left atrial appendage. No thrombus was seen on the Watchman device. Images of the Watchman device were obtained at zero, 45, 90 and 135 degree angles. No mass or thrombi otherwise within the atria. No pericardial effusion. Aortic valve with A3-cuspid and was structurally functional. Mitral leaflets appeared structural. Mild mitral regurgitation was present. Tricuspid leaflets appeared structural. Mild tricuspid regurgitation within physico logic limits was present. Pulmonic valve was only moderately well visualized and appeared unremarkable. Mild pulmonic regurgitation. Distal aortic arch and descending thoracic artery showed mild atherosclerosis. CONCLUSIONS: 1. Well seated and complete occlusion of the left atrial appendage nodes with a Watchman device. No thrombus on the Watchman. 2. Normal left ventricle size, regional wall motion and systolic function. Left ventricular ejection fraction (LVEF) 60% by visual estimate. 3. Mild atherosclerosis involving the distal aortic arch and descending thoracic artery.
== END 2021-06-18 15:55 | disposition home or self-care (01) ==
LOC: M SDC 12:35
PROVIDERS: ATTEND Internal Medicine Cardiovascular Disease
DX: I48.91 Unspecified atrial fibrillation (principal); Z79.01 Long term (current) use of anticoagulants; Z98.84 Bariatric surgery status; E11.9 Type 2 diabetes mellitus without complications; Z79.84 Long term (current) use of oral hypoglycemic drugs; F41.9 Anxiety disorder, unspecified
CPT/HCPCS: 93312; 93320; 93325; J2250; J2405; J3010

== ENCOUNTER 2021-12-30 12:48 | Day surgery (SDC) | payer OTHER ==
[~2021-12-30] VITALS: Ht 188 cm; Wt 97.9 kg
[~2021-12-30 12:48] MED LIST changes: +DULO1CAP6 PO; -LR 1,000 ML IV ONE; +METF-729 PO; +PLAV1TAB2 PO; +TIZA10TA; -TIZA4TAB4; +VERA180C PO; +VITMTA PO; +ZANA4CAP PO
[2021-12-30 13:45] VITALS: BP 157/74
== END 2021-12-30 14:29 | disposition home or self-care (01) ==
LOC: M OPP 12:48
PROVIDERS: ATTEND Internal Medicine Cardiovascular Disease
DX: I48.91 Unspecified atrial fibrillation (principal); Z53.8 Procedure and treatment not carried out for other reasons